=== PATIENT | male | born 1990 | race Caucasian/White ===

== ENCOUNTER 2020-08-12 20:28 | Emergency (ER) | payer BC ==
[2020-08-12] MEDS ORDERED: SODIUM CHLORIDE 0.9% 1,000 ML IV ONE (20:54)
[2020-08-12 21:28] LABS: Basophils % (A) 0 %; Eosinophils # (A) 0.1 k/uL (0-0.7); Eosinophils % (A) 1 %; HCT 42.7 % (39.0-53.0); HGB 14.9 gm/dL (13.0-17.5); Lymphocytes % (A) 9 %; MCH 32.3 pg (25.0-35.0); MCHC 34.9 g/dL (31.0-37.0); MCV 92.7 fL (80.0-100.0); Mean Platelet Volume 6.6; Monocytes # (A) 0.4 k/uL (0-1.0); Monocytes % (A) 4 %; Neutrophils # (A) 9.5 k/uL (1.3-7.7); Neutrophils % (A) 86 %; Platelet Count 226 k/uL (150-450); RBC 4.61 m/uL (4.30-5.90); RDW 11.3 % (11.5-15.5)
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
[2020-08-12 21:38] LABS: ALT 32 U/L (4-49); AST 33 U/L (17-59); African American GFR (CKD) >90 (>60 ml/min/1.73 sqM); Albumin 4.6 g/dL (3.5-5.0); Alkaline Phosphatase 51 U/L (38-126); Amylase 69 U/L (30-110); Anion Gap 8 mmol/L; Blood Urea Nitrogen 16 mg/dL (9-20); Calcium 9.6 mg/dL (8.4-10.2); Carbon Dioxide 28 mmol/L (22-30); Chloride 102 mmol/L (98-107); Glucose 134 mg/dL (74-99); Lipase 148 U/L (23-300); Non-African American GFR(CKD) >90 (>60 ml/min/1.73 sqM); Potassium 3.7 mmol/L (3.5-5.1); Sodium 138 mmol/L (137-145); Total Bilirubin 0.7 mg/dL (0.2-1.3); Total Protein 7.4 g/dL (6.3-8.2)
--- NOTE | 2020-08-12 21:48 | CT ---
EXAMINATION TYPE: CT abdomen pelvis w con DATE OF EXAM: 08/12/2020 COMPARISON: None available. HISTORY: lower anterior abdominal pain CT DLP: 674 mGycm Automated exposure control for dose reduction was used. TECHNIQUE: Helical acquisition of images was performed from the lung bases through the pelvis. CONTRAST: Performed without Oral Contrast and with IV Contrast, patient injected with 100 mL of Isovue 300. FINDINGS: LUNG BASES: No significant abnormality is appreciated. LIVER/GB: No significant abnormality is appreciated. PANCREAS: No significant abnormality is seen. SPLEEN: No significant abnormality is seen. ADRENALS: No significant abnormality is seen. KIDNEYS: No significant abnormality is seen. FREE AIR: No free air is visualized. RETROPERITONEAL ADENOPATHY: None visualized REPRODUCTIVE ORGANS: No significant abnormality is seen URINARY BLADDER: No significant abnormality is seen. PELVIC ADENOPATHY: None visualized. OSSEOUS STRUCTURES: No significant abnormality is seen. BOWEL: No significant abnormality is seen. No acute appendicitis. OTHER: None IMPRESSION: NO ACUTE ABNORMALITY.
[2020-08-12 21:50] LABS: Appearance,Urine Clear (Clear); Bilirubin,Urine Negative (Negative); Blood,Urine Negative (Negative); Color,Urine Yellow; Glucose,Urine (UA) Negative (Negative); Ketones,Urine Trace (Negative); Leukocyte Esterase,Urine Negative (Negative); Nitrite,Urine Negative (Negative); PH, Urine 6.5 (5.0-8.0); Protein,Urine Trace (Negative); Specific Gravity,Urine 1.025 (1.001-1.035); Urobilinogen,Urine <2.0 mg/dL (<2.0)
[2020-08-12 21:59] LABS: Partial Thromboplastin Time 22.1 sec (22.0-30.0); Prothrombin Time 10.2 sec (9.0-12.0)
[2020-08-12 22:29] VITALS: BP 132/70; PULSE 64; RESP 17; TEMP 98.9
== END 2020-08-12 22:27 | disposition home or self-care (01) ==
LOC: EC 20:28
DX: R10.31 Right lower quadrant pain (principal); D72.829 Elevated white blood cell count, unspecified; Z90.89 Acquired absence of other organs
CPT/HCPCS: 36415; 80053; 82150; 83605; 83690; 85025; 85610; 85730; 81003; 74177; 99284; 96360; Q9967

== ENCOUNTER 2020-11-06 08:07 | Inpatient (IN) | payer BC ==
--- NOTE | 2020-11-06 08:30 | ED ---
Abdominal Pain HPI - General Chief Complaint: Abdominal Pain Stated Complaint: Abd pain Time Seen by Provider: 11/06/20 08:19 Source: patient Mode of arrival: ambulatory Limitations: no limitations - History of Present Illness Initial Comments: 30-year-old male with past nuchal history of appendectomy who presents to the emergency department with reported diffuse abdominal pain. Patient admits to a history of appendectomy several years ago for which she had had subsequent surgery one year later as he did have a retained portion of the appendix. She has not had any abdominal issues since. In July the patient came into the emergency department and was seen for some right lower quadrant abdominal pain. CT was negative the patient was discharged home to follow up with GI. He reports that his symptoms improved initially however one month ago became worse again. He made an appointment with his GI doctor and is scheduled to have a colonoscopy on Tuesday. Yesterday the patient had intense abdominal pain which radiated from his epigastrium down into his genitalia. He had associated nausea without vomiting. He took Tylenol at home without improvement in the pain. Pain is worse with movement and better with rest. He does have a family history of inflammatory bowel disease. Denies dysuria, hematuria or double voiding. Denies penile drainage or concern for sexually transmitted infections. No diarrhea, constipation, melenic stools or hematochezia. No testicular pain or swelling. No other alleviating, precipitating or modifying factors - Related Data Home Medications Medication Instructions Recorded Confirmed No Known Home Medications 08/12/20 11/06/20 Allergies Allergy/AdvReac Type Severity Reaction Status Date / Time ANTIINFLAMMATORY MEDS AdvReac Unknown Uncoded 11/06/20 09:49 Review of Systems ROS Statement: Those systems with pertinent positive or pertinent negative responses have been documented in the HPI. ROS Other: All systems not noted in ROS Statement are negative. Past Medical History Past Medical History: No Reported History Additional Past Medical History / Comment(s): PANCREATITIS History of Any Multi-Drug Resistant Organisms: None Reported Past Surgical History: Appendectomy Past Psychological History: No Psychological Hx Reported Smoking Status: Never smoker Past Alcohol Use History: Occasional Past Drug Use History: None Reported General Exam Limitations: no limitations Course Vital Signs 11/06/20 11/06/20 11/06/20 08:17 10:23 10:30 Temperature 98.1 F 98 F Pulse Rate 52 L 67 52 L Respiratory 18 19 18 Rate Blood Pressure 156/105 162/108 150/80 O2 Sat by Pulse 100 99 100 Oximetry 11/06/20 13:00 Temperature 99.1 F Pulse Rate 58 L Respiratory 18 Rate Blood Pressure 145/79 O2 Sat by Pulse 97 Oximetry Medical Decision Making - Medical Decision Making Upon arrival patient was placed into room 10. A thorough history and physical exam was performed. 12-lead EKG is obtained. Patient placed on continuous pulse ox and cardiac monitoring. IV is established and the patient was given a liter bolus of normal saline followed by 15 mg of Toradol. Laboratory studies are conducted. I did discuss performing an ultrasound and KUB versus a CT. Pat ient does opt for CT at this time. He is aware of the risks of radiation and does consent to the exam. Laboratory studies are reviewed. CT of the abdomen and pelvis demonstrates nonspecific enteritis. Small amount of free fluid within the pelvic. No evidence of abscess or free air. Results are discussed the patient. He is having significant abdominal pain at this time and therefore he is given a dose of morphine. Repeat evaluation demonstrates no improvement in the patient's pain and therefore Dilaudid is ordered when necessary. As a patient is having persistent pain I did recommend overnight observation for GI and surgery consultation. Patient did agree to this plan. Spoke with Dr. shen who agreed to admit the patient. Patient remained in stable condition awaiting bed - Lab Data Result diagrams: 11/06/20 08:55 11/06/20 08:55 Lab Results 11/06/20 11/06/20 11/06/20 Range/Units 08:55 08:55 08:55 WBC 9.0 (3.8-10.6) k/uL RBC 4.92 (4.30-5.90) m/uL Hgb 15.6 (13.0-17.5) gm/dL Hct 46.4 (39.0-53.0) % MCV 94.3 (80.0-100.0) fL MCH 31.7 (25.0-35.0) pg MCHC 33.6 (31.0-37.0) g/dL RDW 12.6 (11.5-15.5) % Plt Count 186 (150-450) k/uL MPV 6.9 Neutrophils % 81 % Lymphocytes % 11 % Monocytes % 5 % Eosinophils % 2 % Basophils % 0 % Neutrophils # 7.3 (1.3-7.7) k/uL Lymphocytes # 0.9 L (1.0-4.8) k/uL Monocytes # 0.5 (0-1.0) k/uL Eosinophils # 0.2 (0-0.7) k/uL Basophils # 0.0 (0-0.2) k/uL PT (9.0-12.0) sec INR (<1.2) APTT (22.0-30.0) sec Sodium 139 (137-145) mmol/L Potassium 4.2 (3.5-5.1) mmol/L Chloride 99 (98-107) mmol/L Carbon Dioxide 30 (22-30) mmol/L Anion Gap 10 mmol/L BUN 14 (9-20) mg/dL Creatinine 1.04 (0.66-1.25) mg/dL Est GFR (CKD-EPI)AfAm >90 (>60 ml/min/1.73 sqM) Est GFR (CKD-EPI)NonAf >90 (>60 ml/min/1.73 sqM) Glucose 112 H (74-99) mg/dL Plasma Lactic Acid [place] (0.7-2.0) mmol/L Calcium 10.1 (8.4-10.2) mg/dL Total Bilirubin 1.4 H (0.2-1.3) mg/dL AST 36 (17-59) U/L ALT 59 H (4-49) U/L Alkaline Phosphatase 42 (38-126) U/L Total Protein 7.8 (6.3-8.2) g/dL Albumin 4.9 (3.5-5.0) g/dL Lipase 232 (23-300) U/L Urine Color Yellow Urine Appearance Clear (Clear) Urine pH 7.0 (5.0-8.0) Ur Specific [place] 1.021 (1.001-1.035) Urine Protein Negative (Negative) Urine Glucose (UA) Negative (Negative) Urine Ketones Negative (Negative) Urine Blood Negative (Negative) Urine Nitrite Negative (Negative) Urine Bilirubin Negative (Negative) Urine Urobilinogen <2.0 (<2.0) mg/dL Ur Leukocyte Esterase Negative (Negative) 11/06/20 11/06/20 Range/Units 08:55 08:55 WBC (3.8-10.6) k/uL RBC (4.30-5.90) m/uL Hgb (13.0-17.5) gm/dL Hct (39.0-53.0) % MCV (80.0-100.0) fL MCH (25.0-35.0) pg MCHC (31.0-37.0) g/dL RDW (11.5-15.5) % Plt Count (150-450) k/uL MPV Neutrophils % % Lymphocytes % % Monocytes % % Eosinophils % % Basophils % % Neutrophils # (1.3-7.7) k/uL Lymphocytes # (1.0-4.8) k/uL Monocytes # (0-1.0) k/uL Eosinophils # (0-0.7) k/uL Basophils # (0-0.2) k/uL PT 10.6 (9.0-12.0) sec INR 1.0 (<1.2) APTT 22.8 (22.0-30.0) sec Sodium (137-145) mmol/L Potassium (3.5-5.1) mmol/L Chloride (98-107) mmol/L Carbon Dioxide (22-30) mmol/L Anion Gap mmol/L BUN (9-20) mg/dL Creatinine (0.66-1.25) mg/dL Est GFR (CKD-EPI)AfAm (>60 ml/min/1.73 sqM) Est GFR (CKD-EPI)NonAf (>60 ml/min/1.73 sqM) Glucose (74-99) mg/dL Plasma Lactic Acid [place] 1.0 (0.7-2.0) mmol/L Calcium (8.4-10.2) mg/dL Total Bilirubin (0.2-1.3) mg/dL AST (17-59) U/L ALT (4-49) U/L Alkaline Phosphatase (38-126) U/L Total Protein (6.3-8.2) g/dL Albumin (3.5-5.0) g/dL Lipase (23-300) U/L Urine Color Urine Appearance (Clear) Urine pH (5.0-8.0) Ur Specific [place] (1.001-1.035) Urine Protein (Negative) Urine Glucose (UA) (Negative) Urine Ketones (Negative) Urine Blood (Negative) Urine Nitrite (Negative) Urine Bilirubin (Negative) Urine Urobilinogen (<2.0) mg/dL Ur Leukocyte Esterase (Negative) - EKG Data EKG Comments: EKG demonstrates sinus tachycardia with a ventricular rate of 50. AL interval 154. QRS 124. QTC 390. A Q waves in V3 through V5. No acute ST segment elevations Disposition Clinical Impression: Intractable abdominal pain, Enteritis Disposition: ADMITTED IP TO THIS HOSP Condition: Stable Is patient prescribed a controlled substance at d/c from ED?: No Decision to Admit Reason: Admit from EC Decision Date: 11/06/20 Decision Time: 10:52
[2020-11-06] MEDS ORDERED: SODIUM CHLORIDE 0.9% 1,000 ML IV ONE (08:31)
[2020-11-06] MEDS ORDERED: KETOROLAC 15 MG/ML 1 ML VIAL IVP STA (08:46)
[2020-11-06 09:15] LABS: Appearance,Urine Clear (Clear); Bilirubin,Urine Negative (Negative); Blood,Urine Negative (Negative); Color,Urine Yellow; Glucose,Urine (UA) Negative (Negative); Ketones,Urine Negative (Negative); Leukocyte Esterase,Urine Negative (Negative); Nitrite,Urine Negative (Negative); Protein,Urine Negative (Negative); Specific Gravity,Urine 1.021 (1.001-1.035); Urobilinogen,Urine <2.0 mg/dL (<2.0)
[2020-11-06 09:16] LABS: Basophils % (A) 0 %; Eosinophils # (A) 0.2 k/uL (0-0.7); Eosinophils % (A) 2 %; HCT 46.4 % (39.0-53.0); HGB 15.6 gm/dL (13.0-17.5); Lymphocytes # (A) 0.9 k/uL (1.0-4.8); Lymphocytes % (A) 11 %; MCH 31.7 pg (25.0-35.0); MCHC 33.6 g/dL (31.0-37.0); MCV 94.3 fL (80.0-100.0); Mean Platelet Volume 6.9; Monocytes # (A) 0.5 k/uL (0-1.0); Monocytes % (A) 5 %; Neutrophils # (A) 7.3 k/uL (1.3-7.7); Neutrophils % (A) 81 %; Platelet Count 186 k/uL (150-450); RBC 4.92 m/uL (4.30-5.90); RDW 12.6 % (11.5-15.5)
[2020-11-06 09:28] LABS: ALT 59 U/L (4-49); AST 36 U/L (17-59); African American GFR (CKD) >90 (>60 ml/min/1.73 sqM); Albumin 4.9 g/dL (3.5-5.0); Alkaline Phosphatase 42 U/L (38-126); Anion Gap 10 mmol/L; Blood Urea Nitrogen 14 mg/dL (9-20); Calcium 10.1 mg/dL (8.4-10.2); Carbon Dioxide 30 mmol/L (22-30); Chloride 99 mmol/L (98-107); Glucose 112 mg/dL (74-99); Lipase 232 U/L (23-300); Non-African American GFR(CKD) >90 (>60 ml/min/1.73 sqM); Potassium 4.2 mmol/L (3.5-5.1); Sodium 139 mmol/L (137-145); Total Bilirubin 1.4 mg/dL (0.2-1.3); Total Protein 7.8 g/dL (6.3-8.2)
[2020-11-06 09:32] LABS: Partial Thromboplastin Time 22.8 sec (22.0-30.0); Prothrombin Time 10.6 sec (9.0-12.0)
--- NOTE | 2020-11-06 10:03 | CT ---
EXAMINATION TYPE: CT abdomen pelvis w con DATE OF EXAM: 11/06/2020 COMPARISON: 08/12/2020 HISTORY: Right upper and lower quadrant pain CT DLP: 710.2 mGycm CONTRAST: CT scan of the abdomen and pelvis is performed without Oral Contrast and with IV Contrast, patient in jected with 100 mL of Isovue 300. FINDINGS: LUNG BASES-: No visible nodule. No infiltrate. LIVER/GB: No calcified gallstones. No space occupying hepatic lesion. Biliary tree is of normal ca liber. PANCREAS: No inflammation. No distinct mass. SPLEEN: No splenic enlargement. No lesion seen. ADRENALS: No nodule. No thickening. KIDNEYS/BLADDER: No hydronephrosis. No nephrolithiasis. No distinct renal mass. Urinary bladder g rossly unremarkable. BOWEL: Appendectomy changes. No evidence for abscess. Mild distention and wall thickening of the ilea l loops may reflect nonspecific enteritis. GENITAL ORGANS: No gross abnormality. LYMPH NODES: No greater than 1cm abdominal or pelvic lymph nodes are appreciated. AORTA: No significant abnormality. OSSEOUS STRUCTURES: No significant abnormality is seen. OTHER: Small amount of free fluid within the pelvis. IMPRESSION: 1. Correlate for nonspecific enteritis. 2. Small amount of free fluid within the pelvis. 3. Postoperative changes of prior appendectomy. No evidence for abscess or free air.
[2020-11-06] MEDS ORDERED: MORPHINE SULFATE 4 MG/ML SYRINGE IVP STA (10:17)
[2020-11-06] MEDS ORDERED: ONDANSETRON 4 MG/2 ML VIAL IVP STA (10:17)
[2020-11-06] MEDS ORDERED: NALOXONE 0.4 MG/ML 1 ML VIAL IV PRN ×2 (10:56→13:44)
[2020-11-06] MEDS: SODIUM CHLORIDE 0.9% 1,000 ML IV SCH ×2 (12:15→16:37)
[2020-11-06] MEDS ORDERED: MORPHINE SULFATE 4 MG/ML SYRINGE IV PRN (13:44)
[2020-11-06] MEDS ORDERED: ACETAMINOPHEN TAB 325 MG TAB PO PRN (13:44)
[2020-11-06] MEDS: HYDROmorphone 1 MG/ML 1 ML SYRINGE IVP SCH ×4 (13:48→21:31)
--- NOTE | 2020-11-06 13:48 | P.HPIM ---
History of Present Illness H&P Date: 11/06/20 Chief Complaint: Abdominal Pain 30 year old man with no significant medical history presented with abdominal pain. Patient describes the pain as sharp in nature. He has a history of 2 x appendectomies at [facility]. He says that over last several months he's had intermittent RLQ abd pain, and he had been planning on having a colonoscopy done on Tuesday with Dr. Becker, however, he had acute worsening of this pain over the last day. This pain was so severe, it woke him from bed in the middle of the night last night. He denies bloody stools, but notes he has n't had a stool in 1.5 days despite usually having regular BMs. He denies nausea, vomiting, fevers, chillls, chest pain, palps, new rashes, dyspnea, recent travel, recent illness, dysuria, dyschezia, new foods in his diet. Vital signs stable. Labs notable for mild elevation of ALT and total bilirubin to 1.4. CT A/P demonstrates non-specific gastroenteritis, however, this was done without oral contrast. Review of Systems All Systems reviewed and pertinent positives and negatives noted in HPI, all other symptoms are negative Past Medical History Past Medical History: No Reported History Additional Past Medical History / Comment(s): PANCREATITIS History of Any Multi-Drug Resistant Organisms: None Reported Past Surgical History: Appendectomy Past Psychological History: No Psychological Hx Reported Smoking Status: Never smoker Past Alcohol Use History: Occasional Past Drug Use History: None Reported Medications and Allergies Home Medications Medication Instructions Recorded Confirmed Type No Known Home Medications 08/12/20 11/06/20 History Allergies Allergy/AdvReac Type Severity Reaction Status Date / Time ANTIINFLAMMATORY MEDS AdvReac Unknown Uncoded 11/06/20 09:49 Physical Exam Osteopathic Statement: *. No significant issues noted on an osteopathic structural exam other than those noted in the History and Physical/Consult. Vitals: Vital Signs Temp Pulse Resp BP Pulse Ox 11/06/20 10:30 52 L 18 150/80 100 11/06/20 10:23 98 F 67 19 162/108 99 11/06/20 08:17 98.1 F 52 L 18 156/105 100 Intake and Output 11/05/20 11/06/20 11/06/20 22:59 06:59 14:59 Other: Weight 83.915 kg Gen: awake, alert HEENT: normocephalic, atraumatic, good hearing acuity, moist mucous membranes Resp: good air exchange, breathing comfortably with no accessory muscle use CVS: good distal perfusion x 4, GI: soft, right lower quadrant tenderness to palpation with slight rebound tenderness, voluntary guarding : no SPT, no CVAT, talley catheter not present MSK: no pitting edema, no clubbing Neuro: non-focal, moving all extremities Psych: cooperative, euthymic mood Results CBC & Chem 7: 11/06/20 08:55 11/06/20 08:55 Labs: Abnormal Lab Results - Last 24 Hours (Table) 11/06/20 11/06/20 Range/Units 08:55 08:55 Lymphocytes # 0.9 L (1.0-4.8) k/uL Glucose 112 H (74-99) mg/dL Total Bilirubin 1.4 H (0.2-1.3) mg/dL ALT 59 H (4-49) U/L Assessment and Plan Assessment: 1. Gastroenteritis, unspecified 30-year-old man with no medical history, surgical history of appendectomy twice presented with right lower quadrant abdominal pain sharp in nature with CT scan showing nonspecific enteritis, admitted for further workup. FHx: crohns dz in grandfather. Plan: - admit to observation - GI consult, appreciate recs - will hold off on abx for now with absence of other infectious signs - pain control: tylenol PRN, morphine PRN - nausea control: zofran PRN - IVF: 1L NS Bolus --> NS 150cc/hr - stool culture, FOBT, pending - ESR/CRP, pending - CLD for now, will await GI consult prior to advancing Full Code DVT PPx: enoxaparin 40mg daily
[2020-11-07] MEDS: HYDROmorphone 1 MG/ML 1 ML SYRINGE IVP SCH ×8 (00:40→22:51)
[2020-11-07] MEDS: SODIUM CHLORIDE 0.9% 1,000 ML IV SCH ×4 (01:27→19:12)
[2020-11-07] MEDS: ENOXAPARIN 40 MG/0.4 ML SYRINGE SQ SCH (07:17)
[2020-11-07] MEDS: ONDANSETRON 4 MG/2 ML VIAL IVP PRN ×2 (10:03→17:03)
[2020-11-07 10:09] LABS: Basophils # (A) 0.02 X 10*3/uL (0.00-0.10); Basophils % (A) 0.2 %; Eosinophils # (A) 0.15 X 10*3/uL (0.04-0.35); Eosinophils % (A) 1.8 %; HCT 39.7 % (39.6-50.0); HGB 13.3 g/dL (13.0-17.0); Lymphocytes # (A) 1.07 X 10*3/uL (0.90-5.00); Lymphocytes % (A) 12.8 %; MCH 31.9 pg (27.0-32.0); MCHC 33.5 g/dL (32.0-37.0); MCV 95.2 fL (80.0-97.0); Mean Platelet Volume 10.1 fL (9.5-12.2); Monocytes # (A) 0.76 X 10*3/uL (0.20-1.00); Monocytes % (A) 9.1 %; Neutrophils # (A) 6.31 X 10*3/uL (1.80-7.70); Neutrophils % (A) 75.9 %; Platelet Count 158 X 10*3/uL (140-440); RBC 4.17 X 10*6/uL (4.40-5.60); RDW 11.8 % (11.5-14.5); WBC 8.33 X 10*3/uL (4.50-10.00)
[2020-11-07 11:08] LABS: African American GFR (CKD) 132.4 (60.0-200.0); Anion Gap 6.9 mmol/L (4.00-12.00); BUN/Creat Ratio 8.89 Ratio (12.00-20.00); C Reactive Protein 9.6 mg/dL (0.0-0.8); Calcium 8.5 mg/dL (8.7-10.3); Carbon Dioxide 28.1 mmol/L (21.6-31.8); Magnesium 1.5 mg/dL (1.5-2.4); Non-African American GFR(CKD) 114.2 (60.0-200.0)
--- NOTE | 2020-11-07 12:35 | P.PN ---
Subjective Progress Note Date: 11/07/20 Ongoing abdominal pain predominantly in RLQ, but also diffuse. Pending GI consultation. Objective - Vital Signs Vital signs: Vital Signs Temp 99.1 F 11/07/20 07:00 Pulse 108 H 11/07/20 08:00 Resp 18 11/07/20 08:00 BP 137/68 11/07/20 07:00 Pulse Ox 99 11/07/20 07:00 Intake & Output 11/06/20 11/07/20 11/07/20 18:59 06:59 18:59 Output Total 0 0 0 Balance 0 0 0 Weight 83.915 kg Output: Stool 0 0 0 Other: # Voids 1 2 2 - Exam Gen: awake, alert HEENT: normocephalic, atraumatic, good hearing acuity, moist mucous membranes Resp: good air exchange, breathing comfortably with no accessory muscle use CVS: good distal perfusion x 4, GI: soft, right lower quadrant tenderness to palpation with slight rebound tenderness, voluntary guarding : no SPT, no CVAT, talley catheter not present MSK: no pitting edema, no clubbing Neuro: non-focal, moving all extremities Psych: cooperative, euthymic mood - Labs CBC & Chem 7: 11/07/20 05:52 11/07/20 05:52 Labs: Abnormal Lab Results - Last 24 Hours (Table) 11/07/20 11/07/20 Range/Units 05:52 05:52 RBC 4.17 L (4.40-5.60) X 10*6/uL BUN 8.0 L (9.0-27.0) mg/dL BUN/Creatinine Ratio 8.89 L (12.00-20.00) Ratio Glucose 112 H (70-110) mg/dL Calcium 8.5 L (8.7-10.3) mg/dL C-Reactive Protein 9.6 H (0.0-0.8) mg/dL Assessment and Plan Assessment: 1. Gastroenteritis, unspecified 30-year-old man with no medical history, surgical history of appendectomy twice presented with right lower quadrant abdominal pain sharp in nature with CT scan showing nonspecific enteritis, admitted for further workup. FHx: crohns dz in grandfather. Plan: - admit to observation - GI consult, appreciate recs - will hold off on abx for now with absence of other infectious signs - pain control: tylenol PRN, morphine PRN - nausea control: zofran PRN - IVF: 1L NS Bolus --> NS 150cc/hr - stool culture, FOBT, pending - ESR/CRP = pending/9.6 - CLD for now, will await GI consult prior to advancing Full Code DVT PPx: enoxaparin 40mg daily
--- NOTE | 2020-11-07 14:31 | CONS ---
CONSULTATION DATE OF DICTATION: November 07, 2020 REASON FOR CONSULTATION: Chronic abdominal pain. HISTORY OF PRESENT ILLNESS: The patient is a 30-year-old, pleasant, white male admitted to the hospital with chronic abdominal pain for the last 6 months duration. The patient has been complaining of right lower quadrant abdominal pain for the last 6 months, occasionally in the left lower quadrant area and sometimes radiating to the lower abdominal area. He denies any associated nausea, vomiting. No rectal bleeding or melena. No altered bowel movements. Symptoms have been going on since April of last year. He was seen by Dr. Becker on an outpatient basis. He is scheduled for an upper endoscopy as well as colonoscopy this Tuesday. However, in the meantime, his symptoms got worse. He came in to the emergency room yesterday. He did have a CT of the abdomen and pelvis done yesterday that showed nonspecific enteritis. His grandfather was diagnosed with Crohn disease. He states that he lost about 15 pounds since the onset of these symptoms. However, he has been having a good appetite. No prior history of peptic ulcer disease. No recent NSAID use. PAST MEDICAL HISTORY: Unremarkable. PAST SURGICAL HISTORY: Appendectomy at age 14. MEDICATIONS AT HOME: None. ALLERGIES: No known drug allergies. SOCIAL HISTORY: No smoking, no alcohol use. FAMILY HISTORY: Grandpa had Crohn disease. REVIEW OF SYSTEMS: CARDIOPULMONARY: No chest pain. No shortness of breath. GENITOURINARY: No dysuria or hematuria. MUSCULOSKELETAL: Unremarkable. SKIN: Unremarkable. ENDOCRINE: Unremarkable. PSYCHIATRIC: Unremarkable. NEUROLOGY: Unremarkable. ENT/VISION: Unremarkable. CONSTITUTIONAL: No recent weight loss. No fever, chills, night sweats. PHYSICAL EXAMINATION: He appears comfortable. Vital signs are stable. Blood pressure 137/68, pulse rate 108, temperature 99. HEENT EXAMINATION: Unremarkable. Conjunctivae pink. Sclerae anicteric. Oral cavity, no lesions. NECK: No JVD or lymph node enlargement. CHEST: Was clear to auscultation. HEART: Regular rate and rhythm. ABDOMEN: Soft. There was mild to moderate tenderness in the right lower quadrant area as well as in the left lower quadrant area. No rebound or rigidity. Minimal tenderness in the epigastric area. EXTREMITIES: No pedal edema. SKIN: No rashes. NEURO: He is alert and oriented x3. No focal deficits. LABS: Labs from yesterday, WBC 9, hemoglobin 15.6, platelets normal. Basic metabolic panel is within normal limits. T bilirubin is 1.4. AST and ALT of 36 and 59 respectively. CRP is 9.6. Lipase is normal. Urinalysis is negative. Coronavirus PCR is negative. IMPRESSION: Chronic lower abdominal pain for the last 6 months duration. The pain mostly in the right lower quadrant area radiating to the left lower quadrant area. CT of the abdomen and pelvis done yesterday showed nonspecific enteritis. The patient has no nausea, vomiting, diarrhea, constipation or rectal bleeding. Possibility of inflammatory bowel disease, especially Crohn disease needs to be excluded. RECOMMENDATION: 1. Continue with a clear liquid diet. 2. Proceed with EGD and colonoscopy tomorrow. Discussed with him the risks, benefits and complications and he is agreeable to it. Further recommendations will follow based on the endoscopy results. Thank you for this consultation. WAYLONL / IJN: [id number] /
[2020-11-07 15:31] LABS: Albumin 4.2 g/dL (3.80-4.90); Albumin/Globulin Ratio 2.21 (1.60-3.17); Bilirubin, Conjugated 0.5 mg/dL (0.20-0.40); Bilirubin,Unconjugated 0.8 mg/dL; Globulin 1.9 g/dL (1.6-3.3); Total Bilirubin 1.3 mg/dL (0.3-1.2); Total Protein 6.1 g/dL (6.2-8.2)
[2020-11-07] MEDS ORDERED: PEG 3350-NA SULF,BICARB,CL/KCL 4,000 ML BOTTLE PO ONE (17:00)
[2020-11-07 17:28] LABS: Erythrocyte Sedimentation Rate 10 mm/Hr (0-15)
[2020-11-07] MEDS ORDERED: PROCHLORPERAZINE INJ 10 MG/2 ML VIAL IVP PRN (18:27)
--- NOTE | 2020-11-07 20:04 | XR ---
EXAMINATION TYPE: XR abdomen acute w cxr DATE OF EXAM: 11/07/2020 COMPARISON: CT 11/06/2020. HISTORY: Abdominal pain. TECHNIQUE: Supine and upright AP views of the abdomen with PA chest. FINDINGS: There is no evidence for pneumoperitoneum. There are multiple borderline to mildly dilated small bowel loops. There is moderate colonic gas. No free air. No mass effects are seen. No unusual calcifications. The lungs are clear. No pleural effusion or pneumothorax. Normal cardiomediastinal silhouette. No acute osseous abnormality. IMPRESSION: Multiple borderline to mildly dilated small bowel loops, may represent ileus versus partial bowel obs truction.
--- NOTE | 2020-11-08 01:16 | XR ---
EXAM: XR Chest, 1 View CLINICAL HISTORY: ITS.REASON XR Reason: NG tube placement TECHNIQUE: Frontal view of the chest. COMPARISON: No relevant prior studies available. FINDINGS: Lungs: Clear lungs. No airspace consolidation. Pleural space: Unremarkable. No pleural effusion or pneumothorax. Heart: Normal heart size. No vascular congestion. Mediastinum: Unremarkable. Bones/joints: Unremarkable. Tubes, lines and devices: Enteric tube extends to the stomach. IMPRESSION: Enteric tube extends to the stomach.
[2020-11-08] MEDS: HYDROmorphone 1 MG/ML 1 ML SYRINGE IVP SCH ×8 (01:18→23:04)
[2020-11-08] MEDS: SODIUM CHLORIDE 0.9% 1,000 ML IV SCH ×4 (04:03→20:18)
[2020-11-08] MEDS: ENOXAPARIN 40 MG/0.4 ML SYRINGE SQ SCH (07:22)
[2020-11-08] MEDS: ONDANSETRON 4 MG/2 ML VIAL IVP PRN ×2 (07:26→12:42)
[2020-11-08] MEDS ORDERED: IOPAMIDOL CONTRAST (ORAL USE) VIAL PO PRN (10:15)
--- NOTE | 2020-11-08 11:51 | P.GSCN ---
History of Present Illness Consult date: 11/08/20 Reason for Consult: Small bowel obstruction History of present illness: Is a 30-year-old male who is being evaluated for possible enteritis. Patient probably had some complaints of abdominal pain nausea after starting his bowel prep. His x-ray was suggestive of a partial small bowel structure. Patient had nasogastric tube decompression overnight. He currently feels better. He has some mild points abdominal pain in the right left lower quadrant. Past Medical History Past Medical History: No Reported History Additional Past Medical History / Comment(s): PANCREATITIS History of Any Multi-Drug Resistant Organisms: None Reported Past Surgical History: Appendectomy Past Psychological History: No Psychological Hx Reported Smoking Status: Never smoker Past Alcohol Use History: Occasional Past Drug Use History: None Reported Medications and Allergies Home Medications Medication Instructions Recorded Confirmed Type No Known Home Medications 08/12/20 11/06/20 History Allergies Allergy/AdvReac Type Severity Reaction Status Date / Time ANTIINFLAMMATORY MEDS AdvReac Unknown Uncoded 11/06/20 09:49 Surgical - Exam Vital Signs Temp Pulse Resp BP Pulse Ox 98.1 F 52 L 18 156/105 100 11/06/20 08:17 11/06/20 08:17 11/06/20 08:17 11/06/20 08:17 11/06/20 08:17 - General well developed, well nourished, no distress - Eyes PERRL - ENT normal pinna - Neck no masses - Respiratory normal expansion - Cardiovascular Rhythm: regular - Abdomen Abdomen: soft, non tender Results - Labs 11/07/20 05:52 11/07/20 05:52 Abnormal Lab Results - Last 24 Hours (Table) 11/07/20 Range/Units 05:52 Total Bilirubin 1.3 H (0.3-1.2) mg/dL Conjugated Bilirubin 0.50 H (0.20-0.40) mg/dL Alkaline Phosphatase 39 L (41-126) U/L Total Protein 6.1 L (6.2-8.2) g/dL Diabetes panel 11/07/20 Range/Units 05:52 AST 19 (14-35) U/L ALT 36 (10-49) U/L Alkaline Phosphatase 39 L (41-126) U/L Total Protein 6.1 L (6.2-8.2) g/dL Albumin 4.20 (3.80-4.90) g/dL Calcium panel 11/07/20 Range/Units 05:52 Albumin 4.20 (3.80-4.90) g/dL Adrenal panel 11/07/20 Range/Units 05:52 Total Bilirubin 1.3 H (0.3-1.2) mg/dL AST 19 (14-35) U/L ALT 36 (10-49) U/L Alkaline Phosphatase 39 L (41-126) U/L Total Protein 6.1 L (6.2-8.2) g/dL Albumin 4.20 (3.80-4.90) g/dL Assessment and Plan Assessment: Questional small bowel charge. Patient will undergo computed tomography scan with oral contrast. She'll be reevaluated in the morning.
--- NOTE | 2020-11-08 12:11 | PN ---
PROGRESS NOTE DATE OF SERVICE: 11/08/2020 Patient is a 30-year-old pleasant white male admitted to hospital with severe right lower quadrant and left lower quadrant abdominal pain for the last 6 months duration. He was seen on consultation yesterday and was scheduled for an EGD and colonoscopy today. However after he started taking his prep, he threw up several times and became very uncomfortable. He had abdominal x-rays done that showed some dilated loops of small bowel suspicious for ileus versus small bowel obstruction and NG tube was placed. The patient is feeling much better this morning. Approximately 300-400 cc of bilious fluid was aspirated. He still continues to have the same amount of lower abdominal pain. He denies any fever, chills, or night sweats. PHYSICAL EXAMINATION: GENERAL: Appears comfortable, no apparent distress. VITAL SIGNS: Stable. Blood pressure 150/76, pulse rate 65, temperature 98.3. HEENT: Examination unremarkable. Conjunctivae are pink. Sclerae anicteric. Oral cavity no lesions. NECK: No JVD or lymph node enlargement. CHEST: Clear to auscultation. HEART: Regular rate and rhythm. ABDOMEN: Soft. There was tenderness in the right lower quadrant as well as in the left lower quadrant area. EXTREMITIES: No pedal edema. SKIN: No rashes. NEUROLOGIC: Alert and oriented x3. No focal deficits. LABS: From today WBC 8.3, hemoglobin 13.3, platelets are normal. Basic metabolic panel is within normal limits. BUN is 8, creatinine 0.9. CRP is 9.6. IMPRESSION: This is a patient with chronic lower abdominal pain for the last 6 months duration which has been progressively getting worse associated with weight loss of [address] of the abdomen done at the time of admission to the hospital showed nonspecific thickening of the ileal loops suspicious for enteritis. The patient has no change in bowel habits. He was scheduled for an EGD and colonoscopy today to evaluate for possible inflammatory bowel disease, but patient was not able to tolerate the prep and developed severe nausea and vomiting requiring NG tube placement. Abdominal x-rays showed dilated small bowel loops suspicious for early small-bowel obstruction. RECOMMENDATIONS: 1. Agree with surgical consultation and I discussed with Dr. Peguero. I agree with obtaining a repeat CT of the abdomen and pelvis with oral contrast to delineate the small bowel well. 2. Continue with NG suction for now. 3. Symptomatic and supportive care. 4. Continue Protonix 40 mg daily and we will follow with you closely. Thank you for this consultation. TRINA / SADAFN: [id number] /
[2020-11-08] MEDS: PANTOPRAZOLE 40 MG/10 ML VIAL IVP SCH (12:41)
--- NOTE | 2020-11-08 13:23 | P.PN ---
Subjective Progress Note Date: 11/08/20 Pt did not tolerate bowel prep last night and continued to have n/v; had abd acute series done which demonstrated early SBO vs partial SBO. Had NGT placed in good position. Surgery consulted, rec CT A/P, pending results. Objective - Vital Signs Vital signs: Vital Signs Temp 98.3 F 11/08/20 07:00 Pulse 65 11/08/20 07:00 Resp 16 11/08/20 07:00 BP 150/76 11/08/20 07:00 Pulse Ox 97 11/08/20 07:00 Intake & Output 11/07/20 11/08/20 11/08/20 18:59 06:59 18:59 Intake Total 1800 Output Total 0 400 Balance 0 1400 Intake: Intake, IV Titration 1800 Amount Sodium Chloride 0.9% 1, 1800 000 ml @ 150 mls/hr IV . Q6H40M [facility] Rx#:[id number] Output: Gastric Drainage 100 Urine 300 Stool 0 0 Other: # Voids 3 3 # Emeses 2 - Exam Gen: awake, alert HEENT: normocephalic, atraumatic, good hearing acuity, moist mucous membranes Resp: good air exchange, breathing comfortably with no accessory muscle use CVS: good distal perfusion x 4, GI: soft, right lower quadrant tenderness to palpation with slight rebound tenderness, voluntary guarding : no SPT, no CVAT, talley catheter not present MSK: no pitting edema, no clubbing Neuro: non-focal, moving all extremities Psych: cooperative, euthymic mood - Labs CBC & Chem 7: 11/07/20 05:52 11/07/20 05:52 Labs: Abnormal Lab Results - Last 24 Hours (Table) 11/07/20 Range/Units 05:52 Total Bilirubin 1.3 H (0.3-1.2) mg/dL Conjugated Bilirubin 0.50 H (0.20-0.40) mg/dL Alkaline Phosphatase 39 L (41-126) U/L Total Protein 6.1 L (6.2-8.2) g/dL Assessment and Plan Assessment: 1. Gastroenteritis, unspecified 2. Small Bowel Obstruction 30-year-old man with no medical history, surgical history of appendectomy twice presented with right lower quadrant abdominal pain sharp in nature with CT scan showing nonspecific enteritis, admitted for further workup. FHx: crohns dz in grandfather. Plan: - admit to observation - GI consult, appreciate recs - will hold off on abx for now with absence of other infectious signs - pain control: tylenol PRN, morphine PRN - nausea control: zofran PRN - IVF: 1L NS Bolus --> NS 150cc/hr - stool culture, FOBT, pending - ESR/CRP = 10/9.6 - NPO with NGT to LIS - General surgery c/s, appreciate recs - CT A/P with oral and IV contrast, pending Full Code DVT PPx: enoxaparin 40mg daily
--- NOTE | 2020-11-08 13:39 | CT ---
EXAMINATION TYPE: CT abdomen pelvis wo con DATE OF EXAM: 11/08/2020 COMPARISON: 11/06/2020. HISTORY: Bowel obstruction CT DLP: 427.80 mGycm Automated exposure control for dose reduction was used. TECHNIQUE: Helical acquisition of images was performed from the lung bases through the pelvis. FINDINGS: LUNG BASES: Mild bibasilar atelectasis. LIVER/GB: No significant abnormality is appreciated. PANCREAS: No significant abnormality is seen. SPLEEN: No significant abnormality is seen. ADRENALS: No significant abnormality is seen. KIDNEYS: No significant abnormality is seen. FREE AIR: No free air is visualized RETROPERITONEAL ADENOPATHY: None visualized REPRODUCTIVE ORGANS: No significant abnormality is seen URINARY BLADDER: No significant abnormality is seen. PELVIC ADENOPATHY: None visualized. OSSEOUS STRUCTURES: No significant abnormality is seen. BOWEL: Few borderline to mildly dilated small bowel loops in the right lower quadrant, less prominen t compared to the prior study (previously multiple small bowel loops). Transition point is seen in th e right lower quadrant. Associated surrounding mild fat stranding. Persistent small pelvic free fluid . No free air. Appendectomy is again noted. Oral contrast is seen to the level of the distal left col on. NG tube is in adequate position. OTHER: None IMPRESSION: LESS PROMINENT FEW PROMINENT TO MILDLY DILATED SMALL BOWEL LOOPS WITH TRANSITION POINT IN THE RIGHT L OWER QUADRANT AND SURROUNDING MILD FAT STRANDING. FINDINGS ARE AGAIN SUGGESTIVE OF ENTERITIS WITH FOC AL ILEUS VERSUS LOW-GRADE PARTIAL SMALL BOWEL OBSTRUCTION. PERSISTENT SMALL PELVIC FREE FLUID. NO FREE AIR.
[2020-11-09] MEDS: HYDROmorphone 1 MG/ML 1 ML SYRINGE IVP SCH ×8 (00:55→21:44)
[2020-11-09] MEDS: ONDANSETRON 4 MG/2 ML VIAL IVP PRN ×2 (04:43→16:20)
[2020-11-09] MEDS: SODIUM CHLORIDE 0.9% 1,000 ML IV SCH ×3 (04:55→19:51)
[2020-11-09] MEDS: PANTOPRAZOLE 40 MG/10 ML VIAL IVP SCH (08:28)
[2020-11-09] MEDS: ENOXAPARIN 40 MG/0.4 ML SYRINGE SQ SCH (08:28)
--- NOTE | 2020-11-09 11:53 | PN ---
PROGRESS NOTE DATE OF SERVICE: 11/09/2020 The patient is a 30-year-old pleasant white male admitted to the hospital with chronic lower abdominal pain for the last six months duration. Initial CAT scan at the time of admission to the hospital shows some thickening loops of the distal ileum and the patient was scheduled for a colonoscopy two days ago. However, while he was drinking his prep he developed severe abdominal distention and abdominal x-rays showed partial small bowel obstruction. He has an NG tube placed since then. Surgery was consulted. He had a repeat CT scan done yesterday and the CT scan showed thickening of the distal ileum/terminal ileum with some fat stranding suspicious for terminal ileitis with a transition point in that area but dilated loops have significantly improved. This morning he is feeling better. Still has some abdominal discomfort but no nausea or vomiting. NG tube in place, 400 mL was aspirated in the last 12 hours. PHYSICAL EXAMINATION: He appears comfortable. VITAL SIGNS: Stable. Blood pressure is 122/89, pulse rate 92 and afebrile. HEENT examination unremarkable. Conjunctivae pink. Sclerae anicteric. Oral cavity no lesions. NECK: No JVD or lymph node enlargement. CHEST was clear to auscultation. HEART: Regular rate and rhythm. ABDOMEN: Soft. Mild tenderness in the right lower quadrant area. EXTREMITIES: No pedal edema. SKIN: No rashes. NEUROLOGIC: Alert and oriented x3. No focal deficits. LABS: No labs available from today. CT of the abdomen and pelvis done yesterday did show some prominent mildly dilated small bowel loops with a transition point in the right lower quadrant and surrounding mild fat stranding suggestive of enteritis with focal ileus versus low-grade partial small bowel obstruction. IMPRESSION: Lower abdominal pain mainly in the right lower quadrant area with partial small bowel obstruction. NG tube in place. The patient doing better. Repeat CAT scan yesterday once again showed some mildly dilated small bowel loops with transition point in the right lower quadrant area. The clinical picture is more suggestive of inflammatory bowel disease and possibility of Crohn's ileitis needs to be excluded. RECOMMENDATIONS: I had a lengthy discussion with the patient as well as his as well as with Dr. Peguero. At this time we will plan on doing a colonoscopy tomorrow with the prep through the NG tube. However, if he cannot tolerate the prep and continues to have persistent small bowel obstruction then he may be a candidate for an exploratory laparotomy. For now we will continue with NG tube suction and start GoLYTELY prep this evening and monitor him closely. Further recommendations will follow based on the clinical course. Thank you for this consultation. TRINA / IJN: [id number] /
--- NOTE | 2020-11-09 13:03 | P.PN ---
Progress Note - Text Progress Note Date: 11/09/20 Patient feels slightly better today. His CAT scan performed yesterday shows a partial small bowel obstruction related to the terminal ileum. There is contrast in the colon. On exam vital signs are stable. Abdomen soft. Mild right lower quadrant tenderness Patient will resume bowel prep. If he tolerates this he will undergo colonoscopy. If not tolerated he will undergo exploratory laparotomy.
--- NOTE | 2020-11-09 13:23 | P.PN ---
Subjective Progress Note Date: 11/09/20 No new complaints today. Pain is slighly improved, patient is passing gas. Plan for bowel prep again tonight, and either colo vs ex lap tomorrow AM Objective - Vital Signs Vital signs: Vital Signs Temp 98 F 11/09/20 07:00 Pulse 55 L 11/09/20 07:00 Resp 16 11/09/20 07:00 BP 151/80 11/09/20 07:00 Pulse Ox 97 11/09/20 07:42 Intake & Output 11/08/20 11/09/20 11/09/20 18:59 06:59 18:59 Intake Total 1800 Output Total 1300 350 Balance 500 -350 Intake: Intake, IV Titration 1800 Amount Sodium Chloride 0.9% 1, 1800 000 ml @ 150 mls/hr IV . Q6H40M [facility] Rx#:[id number] Output: Gastric Drainage 650 Urine 650 350 Stool 0 0 Other: # Voids 2 2 2 # Emeses 0 0 - Exam Gen: awake, alert HEENT: normocephalic, atraumatic, good hearing acuity, moist mucous membranes Resp: good air exchange, breathing comfortably with no accessory muscle use CVS: good distal perfusion x 4, GI: soft, right lower quadrant tenderness to palpation with slight rebound tenderness, voluntary guarding : no SPT, no CVAT, talley catheter not present MSK: no pitting edema, no clubbing Neuro: non-focal, moving all extremities Psych: cooperative, euthymic mood - Labs CBC & Chem 7: 11/07/20 05:52 11/07/20 05:52 Assessment and Plan Assessment: 1. Gastroenteritis, unspecified 2. Small Bowel Obstruction 30-year-old man with no medical history, surgical history of appendectomy twice presented with right lower quadrant abdominal pain sharp in nature with CT scan showing nonspecific enteritis, admitted for further workup. FHx: crohns dz in grandfather. Plan: - admit to observation - GI consult, appreciate recs - prep for colo versus ex lap - will hold off on abx for now with absence of other infectious signs - pain control: tylenol PRN, morphine PRN - nausea control: zofran PRN - IVF: 1L NS Bolus --> NS 150cc/hr - stool culture, FOBT, pending - ESR/CRP = 10/9.6 - NPO with NGT to LIS - General surgery c/s, appreciate recs - CT A/P with oral and IV contrast, pending Full Code DVT PPx: enoxaparin 40mg daily
[2020-11-09] MEDS ORDERED: PEG 3350-NA SULF,BICARB,CL/KCL 4,000 ML BOTTLE PO ONE (16:00)
[2020-11-09 17:05] LABS: Basophils # (A) 0.04 X 10*3/uL (0.00-0.10); Basophils % (A) 0.6 %; Eosinophils # (A) 0.36 X 10*3/uL (0.04-0.35); Eosinophils % (A) 5.3 %; HCT 39.1 % (39.6-50.0); HGB 13.6 g/dL (13.0-17.0); Lymphocytes # (A) 1.12 X 10*3/uL (0.90-5.00); Lymphocytes % (A) 16.5 %; MCH 32.5 pg (27.0-32.0); MCHC 34.8 g/dL (32.0-37.0); MCV 93.3 fL (80.0-97.0); Mean Platelet Volume 10.4 fL (9.5-12.2); Monocytes % (A) 7.4 %; Neutrophils # (A) 4.76 X 10*3/uL (1.80-7.70); Neutrophils % (A) 70.1 %; Platelet Count 168 X 10*3/uL (140-440); RBC 4.19 X 10*6/uL (4.40-5.60); RDW 11.2 % (11.5-14.5); WBC 6.79 X 10*3/uL (4.50-10.00)
[2020-11-09 17:13] LABS: African American GFR (CKD) 138.9 (60.0-200.0); Albumin 4.4 g/dL (3.80-4.90); Albumin/Globulin Ratio 2.32 (1.60-3.17); Anion Gap 10.4 mmol/L (4.00-12.00); BUN/Creat Ratio 12.5 Ratio (12.00-20.00); Calcium 8.8 mg/dL (8.7-10.3); Carbon Dioxide 26.6 mmol/L (21.6-31.8); Globulin 1.9 g/dL (1.6-3.3); Non-African American GFR(CKD) 119.9 (60.0-200.0); Potassium 3.9 mmol/L (3.5-5.5); Total Bilirubin 1.1 mg/dL (0.2-1.2); Total Protein 6.3 g/dL (6.2-8.2)
[2020-11-10] MEDS: SODIUM CHLORIDE 0.9% 1,000 ML IV SCH ×4 (00:19→20:06)
[2020-11-10] MEDS: ONDANSETRON 4 MG/2 ML VIAL IVP PRN (01:05)
[2020-11-10] MEDS: HYDROmorphone 1 MG/ML 1 ML SYRINGE IVP SCH ×4 (01:05→10:17)
[2020-11-10] MEDS: ENOXAPARIN 40 MG/0.4 ML SYRINGE SQ SCH (08:15)
[2020-11-10] MEDS: PANTOPRAZOLE 40 MG/10 ML VIAL IVP SCH (08:15)
[2020-11-10] MEDS ORDERED: HYDROmorphone 1 MG/ML 1 ML SYRINGE IVP PRN (10:18)
--- NOTE | 2020-11-10 11:09 | P.PN ---
Subjective Progress Note Date: 11/10/20 Pt prepped well last night. Plan for colonoscopy today at noon. Objective - Vital Signs Vital signs: Vital Signs Temp 98.2 F 11/10/20 07:00 Pulse 54 L 11/10/20 08:00 Resp 16 11/10/20 08:00 BP 157/88 11/10/20 07:00 Pulse Ox 98 11/10/20 07:00 Intake & Output 11/09/20 11/10/20 11/10/20 18:59 06:59 18:59 Intake Total 1800 Output Total 350 0 Balance -350 1800 0 Intake: Intake, IV Titration 1800 Amount Sodium Chloride 0.9% 1, 1800 000 ml @ 150 mls/hr IV . Q6H40M [facility] Rx#:[id number] Output: Urine 350 Stool 0 0 Other: Voiding Method Toilet Toilet # Voids 1 2 # Bowel Movements 2 # Emeses 0 - Exam Gen: awake, alert HEENT: normocephalic, atraumatic, good hearing acuity, moist mucous membranes Resp: good air exchange, breathing comfortably with no accessory muscle use CVS: good distal perfusion x 4, GI: soft, right lower quadrant tenderness to palpation with slight rebound tenderness, voluntary guarding : no SPT, no CVAT, talley catheter not present MSK: no pitting edema, no clubbing Neuro: non-focal, moving all extremities Psych: cooperative, euthymic mood - Labs CBC & Chem 7: 11/09/20 09:46 11/09/20 09:46 Labs: Abnormal Lab Results - Last 24 Hours (Table) 11/09/20 Range/Units 09:46 RBC 4.19 L (4.40-5.60) X 10*6/uL Hct 39.1 L (39.6-50.0) % MCH 32.5 H (27.0-32.0) pg RDW 11.2 L (11.5-14.5) % Eosinophils # 0.36 H (0.04-0.35) X 10*3/uL Assessment and Plan Assessment: 1. Gastroenteritis, unspecified 2. Small Bowel Obstruction 30-year-old man with no medical history, surgical history of appendectomy twice presented with right lower quadrant abdominal pain sharp in nature with CT scan showing nonspecific enteritis, admitted for further workup. FHx: crohns dz in grandfather. Plan: - admit to observation - GI consult, appreciate recs - colonoscopy 11/10 - will hold off on abx for now with absence of other infectious signs - pain control: tylenol PRN, morphine/dilaudid PRN - nausea control: zofran PRN - IVF: 1L NS Bolus --> NS 150cc/hr - stool culture, FOBT, pending - ESR/CRP = 10/9.6 - NPO with NGT to LIS - General surgery c/s, appreciate recs - CT A/P with oral and IV contrast, with transition point in RLQ, contrast passes through from small to large colon Full Code DVT PPx: enoxaparin 40mg daily
--- NOTE | 2020-11-10 11:27 | P.PN ---
Subjective Progress Note Date: 11/10/20 CHIEF COMPLAINT: Abdominal pain HISTORY OF PRESENT ILLNESS: Patient is being followed in regards to possible small bowel obstruction. He is having had chronic lower abdominal pain for about 6 months. He is scheduled for outpatient colonoscopy however while taking the prep he developed severe abdominal pain and distention. Surgical service is following in regards to partial small bowel obstruction. Patient had a repeat CAT scan on November 08 that showed less prominent with few prominent to mildly dilated small bowel loops with transition point in the right lower quadrant and surrounding mild fat stranding suggestive of enteritis with focal ileus versus low-grade partial small bowel obstruction. Patient was able to tolerate colonoscopy prep. He is scheduled for colonoscopy today. Patient reports improvement in his abdominal pain today. He denies any nausea. He currently has NG tube in but clamped. Afebrile. PHYSICAL EXAM: VITAL SIGNS: Reviewed. GENERAL: Well-developed in no acute distress. HEENT: No sclera icterus. Extraocular movements grossly intact. Moist buccal mucosa. Head is atraumatic, normocephalic. ABDOMEN: Soft. Nondistended. Nontender. NEUROLOGIC: Alert and oriented. Cranial nerves II through XII grossly intact. ASSESSMENT: 1. Abdominal pain 2. Partial small bowel obstruction at the terminal ileum PLAN: -Colonoscopy today with GI service -Continue supportive care Physician Occasional Babysitter note has been reviewed by physician. Signing provider agrees with the documented findings, assessment, and plan of care. Objective - Vital Signs Vital signs: Vital Signs Temp 98.2 F 11/10/20 07:00 Pulse 54 L 11/10/20 08:00 Resp 16 11/10/20 08:00 BP 157/88 11/10/20 07:00 Pulse Ox 98 11/10/20 07:00 Intake & Output 11/09/20 11/10/20 11/10/20 18:59 06:59 18:59 Intake Total 1800 Output Total 350 0 Balance -350 1800 0 Intake: Intake, IV Titration 1800 Amount Sodium Chloride 0.9% 1, 1800 000 ml @ 150 mls/hr IV . Q6H40M [facility] Rx#:[id number] Output: Urine 350 Stool 0 0 Other: Voiding Method Toilet Toilet # Voids 1 2 # Bowel Movements 2 # Emeses 0 - Labs CBC & Chem 7: 11/09/20 09:46 11/09/20 09:46 Labs: Abnormal Lab Results - Last 24 Hours (Table) 11/09/20 Range/Units 09:46 RBC 4.19 L (4.40-5.60) X 10*6/uL Hct 39.1 L (39.6-50.0) % MCH 32.5 H (27.0-32.0) pg RDW 11.2 L (11.5-14.5) % Eosinophils # 0.36 H (0.04-0.35) X 10*3/uL
[2020-11-10] MEDS ORDERED: IV FLUID CONTINUATION 1,000 ML IV ONE (11:41)
[2020-11-10] MEDS ORDERED: PROPOFOL 10 MG/ML 20 ML VIAL IV ONE (11:41)
--- NOTE | 2020-11-10 12:06 | P.PCN ---
Date of Procedure: 11/10/20 Procedure(s) Performed: tBRIEF HISTORY: Patient is a 30-year-old pleasant white male admitted hospital with right lower quadrant abdominal pain for the last few months duration. Initial CAT scan showed some thickening of the ileal loops suspicious for enteritis. He was scheduled for colonoscopy 3 days ago and during the prep he developed severe nausea vomiting and abdominal series revealed small bowel obstruction. A repeat CAT scan was done 2 days ago that showed thickening of the bowel loops with a transition point in the right lower quadrant area. In the meantime his symptoms improved. Has an NG tube in place. He was given GoLYTELY prep through the NG tube. Because of the clinical suspicion for Crohn's disease he scheduled for colonoscopy to evaluate further. PROCEDURE PERFORMED: Colonoscopy with biopsy. PREOPERATIVE DIAGNOSIS: Lower abdominal pain/partial small bowel obstruction r ule out. IV sedation per Anesthesia. PROCEDURE: After informed consent was obtained, the patient, was brought into the endoscopy unit. IV sedation was administered by Anesthesia under continuous monitoring. Digital rectal examination was normal. Initially the Olympus CF-160 flexible video colonoscope was then inserted in the rectum, gradually advanced into the cecum without any difficulty. Careful examination was performed as the scope was gradually being withdrawn. Ileocecal valve and the appendiceal orifice were visualized and appeared normal. Prep was excellent. Terminal ileum was in tubated and approximately 30 cm was visualized and appeared normal. Biopsies were done from the terminal ileum Mucosa of the cecum, ascending colon, transverse colon, descending colon, sigmoid colon, and rectum appeared normal. Retroflexion was performed in the rectum and no lesions were seen. The patient tolerated the procedure well. IMPRESSION: Normal-appearing colon from rectum to cecum as well as terminal ileum with no evidence of colitis or colorectal. RECOMMENDATIONS: Findings of this examination were discussed with the patient.. At this time will keep him nothing by mouth for now and discuss with surgical service and obtain small bowel series to evaluate the rest of the small bowel.
--- NOTE | 2020-11-10 14:39 | FL ---
EXAMINATION TYPE: FL small bowel follow through DATE OF EXAM: 11/10/2020 COMPARISON: None HISTORY: Small bowel obstruction TECHNIQUE: Small bowel is evaluated utilizing single contrast technique administered through the naso gastric tube. Sequential overhead radiographs and fluoroscopy was performed. FINDINGS: There is rapid transit to the small bowel to the colon with transit time measuring approxim ately 30 minutes. Small bowel is nondilated. Ileal and jejunal fold pattern is normal. Terminal ileum is visualized is normal. Loops of bowel appear to be normally mobile. Duodenum appears within normal limits. Ligament of Treitz is normal. IMPRESSION: 1. No small bowel obstruction. 2. No acute bowel abnormality. 3. Rapid transit through small bowel to the colon in 30 minutes
--- NOTE | 2020-11-10 19:22 | P.GSCN ---
History of Present Illness Consult date: 11/10/20 History of present illness: This is a 30 year old male that was admitted on 11/06/20 for RLQ abdominal pain. I have been asked to see this patient for a second surgical opinion on his request. He states that he has had this pain intermittent since April of last year and occurs almost everyday for 10-20 seconds. He has had an ER visit in [facility] secondary to this issue which resulted in a negative workup. He denies any associated nausea, vomiting or changes in bowel function. He followed after that ER visit with YAMILA Rankin, and plan was for colonoscopy for further evaluation. He presented on 11/06 with significantly worsening pain and on workup was found to have concern for a partial small bowel obstruction versus enteritis. He had not had bowel function for 2 days prior to his ER arrival. He was treated conservatively with NGT placement. He is known to have a history of appendectomy many years ago at [facility] and did have a second episode of stump appendicitis requiring a second surgery. He does not have a personal history of Inflammatory bowel disease but does state that his grandfather had a history of Crohn's disease requiring multiple abdominal operations. Plan was made for colonoscopy for further evaluation of inflammatory bowel disease as an inpatient and prep was given through NGT. He did tolerate the prep well and had appropriate bowel function. Colonoscopy did not reveal any evidence of inflammatory bowel disease and approximately 12 inches of ileum was able to be examined. After colonoscopy, I discussed the case with YAMILA Maxwell, and we made decision for a small bowel follow through for further evaluation of obstructive process. The SBFT revealed no obstructive findings with rapid transit of contrast. Review of Systems All systems: negative Past Medical History Past Medical History: No Reported History Additional Past Medical History / Comment(s): PANCREATITIS History of Any Multi-Drug Resistant Organisms: None Reported Past Surgical History: Appendectomy Past Psychological History: No Psychological Hx Reported Smoking Status: Never smoker Past Alcohol Use History: Occasional Past Drug Use History: None Reported Medications and Allergies Home Medications Medication Instructions Recorded Confirmed Type No Known Home Medications 08/12/20 11/06/20 History Allergies Allergy/AdvReac Type Severity Reaction Status Date / Time ANTIINFLAMMATORY MEDS AdvReac Unknown Uncoded 11/06/20 09:49 Surgical - Exam Osteopathic Statement: *. No significant issues noted on an osteopathic structural exam other than those noted in the History and Physical/Consult. Vital Signs Temp Pulse Resp BP Pulse Ox 98.1 F 52 L 18 156/105 100 11/06/20 08:17 11/06/20 08:17 11/06/20 08:17 11/06/20 08:17 11/06/20 08:17 - General well nourished, no distress - Eyes PERRL - ENT no hearing loss - Neck trachea midline - Respiratory normal respiratory effort - Abdomen soft, nontender, nondistended, no rebound, no guarding - Psychiatric oriented to time, oriented to person, oriented to place Results - Labs 11/09/20 09:46 11/09/20 09:46 Assessment and Plan Plan: I discussed the case in depth with the patient and the patient's and friends that were present in the room. At this point, the patient was able to tolerate a colon prep without any significant obstructive symptoms and also underwent a SBFT without evidence of obstruction. He also tolerated a colonoscopy with detailed exam of the terminal ileum without any findings of inflammatory bowel disease. With current findings indicating no active obstruction, I would not recommend acute surgical intervention. As he does not appear to have an active obstruction, I would begin a clear liquid diet and see how he tolerates this. If he is tolerating this, we can advance his diet tomorrow. The cause of the patient's abdominal pain and obstructive imaging findings can be evaluated with MR Enterography or small bowel capsule study as an outpatient to rule out small bowel etiology. This was discussed with GI. I also discussed the possibility of adhesions from his previous 2 appendectomy procedures that could have caused this issue. If this becomes a recurrent issue, it will be reasonable to evaluate with laparoscopy in the future.
[2020-11-11] MEDS: ONDANSETRON 4 MG/2 ML VIAL IVP PRN (02:22)
[2020-11-11 02:42] VITALS: TEMP 98.3
[2020-11-11] MEDS: SODIUM CHLORIDE 0.9% 1,000 ML IV SCH (03:22)
[2020-11-11] MEDS: PANTOPRAZOLE 40 MG/10 ML VIAL IVP SCH (07:54)
[2020-11-11] MEDS: ENOXAPARIN 40 MG/0.4 ML SYRINGE SQ SCH (07:55)
[2020-11-11 10:00] VITALS: BP 153/73; RESP 16
[2020-11-11 10:03] VITALS: PULSE 54
--- NOTE | 2020-11-11 11:59 | P.PN ---
Subjective Progress Note Date: 11/11/20 CHIEF COMPLAINT: Abdominal pain HISTORY OF PRESENT ILLNESS: Patient is being followed in regards to possible small bowel obstruction. He is having had chronic lower abdominal pain for about 6 months. He is scheduled for outpatient colonoscopy however while taking the prep he developed severe abdominal pain and distention. Surgical service is following in regards to partial small bowel obstruction. Patient had a repeat CAT scan on November 08 that showed less prominent with few prominent to mildly dilated small bowel loops with transition point in the right lower quadrant and surrounding mild fat stranding suggestive of enteritis with focal ileus versus low-grade partial small bowel obstruction. Patient had colonoscopy which was completely normal. He had a small bowel follow-through which showed no evidence of obstruction or acute abnormality. Patient denies any abdominal pain. He is tolerating diet. He's afebrile. He is passing gas. PHYSICAL EXAM: VITAL SIGNS: Reviewed. GENERAL: Well-developed in no acute distress. HEENT: No sclera icterus. Extraocular movements grossly intact. Moist buccal mucosa. Head is atraumatic, normocephalic. ABDOMEN: Soft. Nondistended. Nontender. NEUROLOGIC: Alert and oriented. Cranial nerves II through XII grossly intact. ASSESSMENT: 1. Abdominal pain: Resolved. No evidence of small bowel obstruction on small bowel follow-through 2. Possible partial small bowel obstruction at the terminal ileum. Resolved. PLAN: -Patient can be discharge from surgical standpoint Physician Supervising Editor [employer] note has been reviewed by physician. Signing provider agrees with the documented findings, assessment, and plan of care. Objective - Vital Signs Vital signs: Vital Signs Temp 98.3 F 11/11/20 07:53 Pulse 54 L 11/11/20 08:00 Resp 16 11/11/20 08:00 BP 153/73 11/11/20 07:53 Pulse Ox 98 11/11/20 07:53 Intake & Output 11/10/20 11/11/20 11/11/20 18:59 06:59 18:59 Intake Total 300 1600 180 Output Total 1 2 1 Balance 299 1598 179 Intake: IV 300 Intake, IV Titration 1600 Amount Sodium Chloride 0.9% 1, 1600 000 ml @ 150 mls/hr IV . [id number] [facility] Rx#:[id number] Oral 180 Output: Stool 1 2 1 Other: Voiding Method Toilet Toilet Toilet # Voids 3 2 - Labs CBC & Chem 7: 11/09/20 09:46 11/09/20 09:46
--- NOTE | 2020-11-11 14:01 | P.DS ---
Providers Date of admission: 11/08/20 08:44 Expected date of discharge: 11/11/20 Attending physician: Augustus Liu Consults: 11/06/20 10:59 Consult Physician Urgent Consulting Provider: Hunter Becker Consult Reason/Comments: abd pain Do you want consulting provider notified?: Yes 11/08/20 06:04 Consult Physician Urgent Consulting Provider: Yasir Peguero Consult Reason/Comments: Possible SBO Do you want consulting provider notified?: Already Contacted 11/10/20 12:30 Consult Physician Urgent Consulting Provider: Gilberto Williamson Consult Reason/Comments: Abdominal pain, patient requesting second opinion Do you want consulting provider notified?: Yes Primary care physician: Stated None Hospital Course: 1. Gastroenteritis, unspecified 2. Small Bowel Obstruction 30-year-old man with no medical history, surgical history of appendectomy twice presented with right lower quadrant abdominal pain sharp in nature with CT scan showing nonspecific enteritis, admitted for further workup. He was treated with IVF, and pain control, with GI consult. Initial plan was EGD/[place], but patient couldn't tolerate prep, so stat abd XR was completed, demonstrating SBO. NGT was placed to LIS, and Surgery was consulted. Pt improved without surgical intervention. He had gastrograffin study done which showed improvement in SBO. His symptoms also improved to the point that he could tolerate colonoscopy prep. He underwent colonoscopy after good prep, and scope was able to be advanced to the terminal ileum where biopsy was done. Patient did not have gross anatomic appearance of Crohn's disease throughout colon and visible ileum. Surgery/GI recommended outpatient small bowel capsule endoscopy as outpatient. Pt was discharged home in stable condition with new medication of PPI daily and tylenol PRN for pain. I spent 33 minutes preparing this discharge. Assessment: Gen: awake, alert HEENT: normocephalic, atraumatic, good hearing acuity, moist mucous membranes Resp: good air exchange, breathing comfortably with no accessory muscle use CVS: good distal perfusion x 4, GI: soft, right lower quadrant tenderness to palpation with slight rebound tenderness, voluntary guarding : no SPT, no CVAT, talley catheter not present MSK: no pitting edema, no clubbing Neuro: non-focal, moving all extremities Psych: cooperative, euthymic mood Patient Condition at Discharge: Good Plan - Discharge Summary Discharge Rx Participant: Yes New Discharge Prescriptions: New Pantoprazole [Protonix] 40 mg PO DAILY #30 tablet. Acetaminophen [Tylenol] 325 mg PO Q6HR PRN #30 capsule PRN Reason: Pain Discharge Medication List Acetaminophen [Tylenol] 325 mg PO Q6HR PRN #30 capsule 11/11/20 [Rx] Pantoprazole [Protonix] 40 mg PO DAILY #30 tablet. 11/11/20 [Rx] Follow up Appointment(s)/Referral(s): None,Stated [Primary Care Provider] - 1-2 days Discharge Disposition: HOME SELF-CARE
== END 2020-11-11 13:55 | disposition home or self-care (01) | DRG 390 ==
LOC: EC 08:07 → 6NMEDSUR 10:56 → OBSVTOIN 11-08 08:44
PROVIDERS: ADMIT Internal Medicine; ATTEND Internal Medicine
PROC: 0DBB8ZX Excision of Ileum, Via Natural or Artificial Opening Endoscopic, Diagnostic (ICD-10-PCS; principal; 2020-11-10 08:45)
DX: K56.600 Partial intestinal obstruction, unspecified as to cause (principal); K52.9 Noninfective gastroenteritis and colitis, unspecified; G89.29 Other chronic pain; Z20.822 Contact with and (suspected) exposure to COVID-19; Z90.49 Acquired absence of other specified parts of digestive tract
CPT/HCPCS: 36415; 45380; 71045; 74022; 74176; 74177; 74250; 80048; 80053; 80076; 81003; 83605; 83690; 83735; 85025; 85610; 85652; 85730; 86140; 87635; 88305; 93005; 94760; 96361; 96374; 96375; 99285